=== PATIENT | male | born 2005 | race Caucasian/White ===

== ENCOUNTER 2024-04-14 19:05 | Emergency (ER) | payer BC, SELFPAY ==
--- NOTE | 2024-04-14 19:12 | ED.SKABFB ---
HPI - Skin/Abscess/Foreign Bdy General Chief complaint: General Medical Stated complaint: Allergic reaction Time Seen by Provider: 04/14/24 21:52 Source: patient Mode of arrival: ambulatory Limitations: no limitations History of Present Illness ED Provider: SAMUEL RODRIGUEZ narrative: 19 yo male not toxic 1 week ago dx with influenza and bronchitis - was prescribed tamiflu, zpak, prednisone and inhaler. He notes a very sore throat. He completed his therapies except still on prednisone. He has no known prior allergies. Tonight he had a chicken bake and developed a full body rash but it is not itchy. His face felt hot. The rash is diffuse and rough not hives. He notes he still has a sore throat despite treatments. He has swollen lymph nodes in the neck. MD complaint: rash Onset (ago): hour(s) (1) Tetanus up to date: no Location: generalized Severity: moderate Pain Consistency: constant Relieving factors: none Exacerbating factors: none Context: recent illness and recent antibiotic Associated symptoms: other (sore throat) Treatments prior to arrival: none Related Data Previous Rx's ?Medication ?Instructions ?Recorded albuterol sulfate 90 mcg/actuation 2 puff inhalation QID PRN 04/14/24 aerosol inhaler shortness of breath or wheezing #6.7 grams amoxicillin 875 mg-potassium 1 tab PO BID #19 tabs 04/14/24 clavulanate 125 mg tablet Allergies Allergy/AdvReac Type Severity Reaction Status Date / Time No Known Allergies Allergy Verified 04/14/24 19:15 Review of Systems Review of Systems: Constitutional : No Fever, No Chills ENT/Mouth : no oral swelling, No Hoarseness, pos Swallowing Difficulty, pos sore throat Eyes: No Eye Pain, No Swelling, No Redness Cardiovascular : No Chest Pain, No SOB Respiratory : No Cough, No Sputum, No Wheezing, No Smoke Exposure, No Dyspnea Gastrointestinal : No Nausea, No Vomiting, No Diarrhea, No abdominal Pain Genitourinary : No Dysuria, No Urinary Frequency, No Hematuria Musculoskeletal : No joint pain, No Myalgias, No Joint Swelling Skin : No Skin Lesions, positive rash Neuro : No Weakness, No Numbness, No Headache All other systems reviewed and are negative [facility] Past Medical History Attestation statement: The following information was validated with the patient. Source: old records reviewed Medical History (Updated 04/14/24 @ 23:18 by Constanza Rizvi DO) Bronchitis Social History Social History (Updated 04/14/24 @ 23:13 by Constanza Rizvi DO) Patient Tobacco Use Status: Never used Tobacco Smoked in Last 30 Days: No Use of substances other than those prescribed or required for medical reasons: No Advance Directives: No Advance Directives Information Provided: No Physical Exam Vital Signs: Vital Signs: Last Vital Signs Temp 98.5 F 04/14/24 19:13 Pulse 78 04/14/24 22:47 Resp 18 04/14/24 22:47 BP 129/71 04/14/24 22:40 Pulse Ox 99 04/14/24 22:40 O2 Del Method Room Air 04/14/24 22:40 BMI result Body Mass Index 25.9 Appearance: Alert. Oriented X3. No acute distress. Eyes: Pupils equal, round and reactive to light. ENT: Pharynx bilateral exudates on both swollen tonsils moderate swelling and erythema tonsils are not touching and uvula is midline Neck: Normal inspection. bilateral shotty ant cervical lymph nodes CVS: Normal heart rate and rhythm. Pulses normal. Respiratory: No respiratory distress. Breath sounds normal. Abdomen: Soft and nontender. Skin: Skin warm and dry. Normal skin color. diffuse non blanchable rough sandpaper like rash on trunk back and extremities face is slightly red as well Extremities: No lower extremity edema. Neuro: Oriented X 3. No motor deficit. No sensory deficit. CN2-12 intact Course Course Course Narrative: This is a Rapid Medical Examination (RME) performed by Louis Mendoza PA-C in triage. Full HPI, ROS, assessment and treatment plan per primary provider in the Main ED. 19 yo male here for eval of sore throat and cough x1 week. He was seen at urgent care approximately 1 week ago. Diagnosed with a URI, discharged with a Z-Misbah and prednisone. Reports worsening throat pain, primarily on the right. Reports developing a full-body rash tonight after eating a chicken bake and smoothie, which he was consumed in the past without issue. + posterior oropharynx erythematous with bilateral tonsillar hypertrophy and exudates. Uvula midline. Controlling secretions and speaking complete sentences Plan: labs, viral/strep swabs, ekg Medications Administered Discontinued Medications Generic Name Dose Route Start Last Admin Trade Name Freq PRN Reason Stop Dose Admin Acetaminophen 650 mg 02/05/25 22:17 04/14/24 22:37 Acetaminophen 325 Mg Tablet PO 04/14/24 22:18 650 mg ONCE ONE Administration Albuterol Sulfate 2.5 mg/ 5 mg 04/14/24 22:39 04/14/24 22:44 Albuterol Sulfate 2.5 mg INHALE 04/14/24 22:40 5 mg ONCE ONE Administration Amoxicillin/Clavulanate Potassium 875 mg 04/14/24 23:19 04/14/24 23:32 Amoxicillin/Potassium Clav 875 Mg Tablet PO 04/14/24 23:20 875 mg ONCE ONE Administration Famotidine 20 mg 04/14/24 22:17 04/14/24 22:37 Famotidine 20 Mg Tablet PO 04/14/24 22:18 20 mg ONCE ONE Administration Medical Decision Making Medical Decision Making [facility] Narrative: 19 yo male with recent treatment of flu and bronchitis who now presents with no real improvement in his throat and his rash seems more scarlatinoform. It doesn't seem allergic will dose with amoxicillin and tylenol/pepcid. [place] swab sent off Differential Diagnosis Differential Diagnoses: The differential diagnosis associated with the presentation includes allergy, scarlet fever Admission/Observation Consideration of admission/observation: Escalation of care including admission/observation considered Lab Data [facility] Lab Attestation statement: I reviewed the patient's lab results. 04/14/24 20:24 04/14/24 20:24 Labs: Lab Results 04/14/24 Range/Units 20:24 WBC 11.6 H (4.8-10.8) X10*3/uL RBC 5.49 (4.60-5.80) X10*6/uL Hgb 15.9 (14.0-18.0) g/dl Hct 47.6 (42.0-52.0) % MCV 86.7 (80.0-98.0) fL MCH 29.0 (27.0-33.0) pg MCHC 33.4 (31.0-36.0) g/dl RDW 12.8 (11.0-16.0) % Plt Count 208 (160-400) X10*3/uL MPV 10.5 (9.4-12.4) fL Immature Gran % (Auto) 0.4 (0.0-0.4) % Neut % (Auto) 79.8 H (45-73) % Lymph % (Auto) 12.0 L (20-40) % [place] % (Auto) 7.5 (2-11) % Eos % (Auto) 0.0 (0-4) % Baso % (Auto) 0.3 (0-2) % Lymph # (Auto) 1.4 (1.2-4.9) X10*3/uL [place] # (Auto) 0.9 (0.1-1.2) X10*3/uL Eos # (Auto) 0.0 (0.0-0.4) X10*3/uL Baso # (Auto) 0.0 (0.0-0.2) X10*3/uL Abs Immat Gran (auto) 0.05 H (0.00-0.03) X10*3/uL Absolute Neuts (auto) 9.2 H (2.0-8.3) x10*3/uL Absolute Nucleated RBC 0.000 (0.0-0.012) X10*3/uL Nucleated RBC % (auto) 0.0 (0.0-0.2) /100WBC Sodium 141 (135-145) mmol/L Potassium 4.0 (3.3-5.1) mmol/L Chloride 108 (96-108) mmol/L Carbon Dioxide 26 (22-29) mmol/L Anion Gap 11 L (12-20) BUN 18 H (9-16) mg/dL Creatinine 0.90 (0.5-1.4) mg/dL Estim Creat Clear Calc 142.5 Estimated GFR > 60 Random Glucose 123 H (60-115) mg/dL Calcium 8.5 (8.4-10.2) mg/dL Magnesium 2.1 (1.6-2.6) mg/dL Total Bilirubin 0.2 (0.0-1.0) mg/dL AST 28 (5-37) U/L ALT 37 (0-40) U/L Alkaline Phosphatase 60 (39-117) U/L Total Protein 7.4 (6.5-8.0) g/dL Albumin 4.0 (3.5-5.0) g/dL Monoscreen Negative (Negative) S. pyogenes GrpA MYLES Negative (Negative) Independent Interpretation I performed an independent interpretation of an: EKG Interpretation: Rate: 78 Rhythm: NSR [place]: normal Normal P waves. Normal VANDANA. Normal QRS complex. ST T wave : artifact but no GABRIEL qTC: 396 prior studies: no acute ischemai The study has been interpreted contemporaneously by me. . Independent Historian Clinical information obtained from an independent historian. History obtained from or confirmed by: Friend External Record Review External record reviewed: Outpatient record Prescription Management I considered prescription management with: Antibiotic Discharge Plan Discharge Clinical Impression: Scarlet fever Patient Disposition: Home, Self-Care Instructions: Scarlet Fever (ED) Additional Instructions: return for any worsening symptoms oral swelling, difficulty breathing or any other concerns can take zyrtec over the counter for any rash or allergy symptoms throw toothbrush away after 24 hours On amoxicillin-clavulanate, softer bowel movements are to be expected. Call your provider if you move your bowels more than 4 times a day, your bowel movements are almost all liquid, or you get a rash.? Prescriptions: New amoxicillin-pot clavulanate 875-125 mg tablet 1 tab PO BID Qty: 19 0RF albuterol sulfate 90 mcg/actuation HFA aerosol inhaler 2 puff inhalation QID PRN (Reason: shortness of breath or wheezing) Qty: 6.7 0RF Stand Alone Forms: Work/School Release Print Language: Belarusian
[2024-04-14 19:13] VITALS: BP 135/74; PULSE 95; RESP 18; TEMP 36.9; O2SAT 98; BMI 25.9
--- NOTE | 2024-04-14 19:16 | ECG_ITS ---
Test Reason : allergic reaction Blood Pressure : */* mmHG Vent. Rate : 78 BPM Atrial Rate : 78 BPM P-R Int : 128 ms QRS Dur : 92 ms QT Int : 348 ms P-R-T Axes : 59 19 27 degrees QTcB Int : 396 ms Normal sinus rhythm Normal ECG No previous ECGs available Referred By: Dahlia Mendoza Electronically Signed By: Chau Fuentes
[2024-04-14 20:32] LABS: MANUAL DIFF FLAG NO
[2024-04-14 20:34] LABS: Basophils Percent Auto 0.3 % (0-2); Hematocrit 47.6 % (42.0-52.0); Hemoglobin 15.9 g/dl (14.0-18.0); Imm Gran Abs Auto 0.05 X10*3/uL (0.00-0.03); Imm Gran Pct Auto 0.4 % (0.0-0.4); Lymphocytes Absolute Auto 1.4 X10*3/uL (1.2-4.9); Mean Corpuscular HGB Conc 33.4 g/dl (31.0-36.0); Mean Corpuscular Volume 86.7 fL (80.0-98.0); Mean Platelet Volume 10.5 fL (9.4-12.4); Monocytes Absolute Auto 0.9 X10*3/uL (0.1-1.2); Monocytes Percent Auto 7.5 % (2-11); Neutrophils Absolute Auto 9.2 x10*3/uL (2.0-8.3); Neutrophils Percent Auto 79.8 % (45-73); Platelet Count 208 X10*3/uL (160-400); Red Blood Count 5.49 X10*6/uL (4.60-5.80); Red Cell Distribution Width 12.8 % (11.0-16.0); White Blood Count 11.6 X10*3/uL (4.8-10.8)
[2024-04-14 20:45] LABS: IDNOW Serial# 58CA691E; Strep A Nucleic Acid Negative (Negative)
[2024-04-14 20:48] LABS: Alanine Aminotransferase 37 U/L (0-40); Alkaline Phosphatase 60 U/L (39-117); Anion Gap 11 (12-20); Aspartate Amino Transferase 28 U/L (5-37); Bilirubin Total 0.2 mg/dL (0.0-1.0); Blood Urea Nitrogen 18 mg/dL (9-16); Calcium 8.5 mg/dL (8.4-10.2); Carbon Dioxide 26 mmol/L (22-29); Chloride 108 mmol/L (96-108); Creatinine Clr Calc Pharmacy 142.5; Estimated Glomerular Filt Rate > 60; Glucose Random 123 mg/dL (60-115); Magnesium 2.1 mg/dL (1.6-2.6); Sodium 141 mmol/L (135-145); Total Protein 7.4 g/dL (6.5-8.0)
[2024-04-14 20:50] LABS: Monotest Negative (Negative)
--- OUTSIDE RECORDS SUMMARY | 2024-04-14 21:45 | XMS_ITS | Referral Summary ---
Author Organization [facility] Address [address] [place] [address] Care Team Providers Care Ice Cream Freezer Name Role Phone No, Referring Primary Care Provider Unavailabl e Allergies No known active allergies Medications No known medications Social History Tobacco Use Types Packs/Day Years Used Date Smoking Tobacco: Never Smokeless Tobacco: Never Tobacco Cessation:Counseling Given: Not Answered Alcohol Use Standard Drinks/Week Comments Never 0 (1 standard drink = 0.6 oz pur e alcohol) Sex and Gender Information Value Date Recorded Sex Assigned at Male 06/26/2023 10:53 AM EDT Legal Sex Male 5:30 PM EDT Gender Identity Male 06/26/2023 10:53 AM EDT Sexual Orientation Not on file Last Filed Vital Signs Vital Sign Reading Time Taken Comments Blood Pressure 110/80 06/26/2023 12:53 PM EDT Pulse 64 06/26/2023 11:01 AM EDT Temperature 36.4 ??C (97.6 ??F) 07/16/2023 8:19 AM ED T Respiratory Rate - - Oxygen Saturation 99% 06/26/2023 11:01 AM EDT Inhaled Oxygen Concentration - - Weight 84 kg (185 lb 3.2 oz) 08/13/2023 10:18 AM EDT Height 185.4 cm (6' 1 ) 07/16/2023 8:19 AM EDT Body Mass Index 24.43 07/16/2023 8:19 AM EDT Plan of Treatment Not on file Insurance BCBS OUT OF STATE PPO [place]IC [place] [id number] Care Teams Ice Cream Freezer Relationship Specialty Start Date End Date No, Referring PCP - General 01/26/23
--- OUTSIDE RECORDS SUMMARY | 2024-04-14 21:45 | XMS_ITS | Encounter Summary ---
Author Organization [facility] Address [address] [place] [address] Care Team Providers Care Mold Making Supervisor Name Role Phone No, Referring Primary Care Provider Unavailabl e Encounter Details Date Type Department Care Team (Late st Contact Info) Description 09/10/2023 Convertrot Message [facility] Revenue Cycle Management [address] [place] [id number] Mychart, Generic Provider [address] [place] [address] your billing request Social History Tobacco Use Types Packs/Day Years Used Date Smoking Tobacco: Never Smokeless Tobacco: Never Alcohol Use Standard Drinks/Week Comments Never 0 (1 standard drink = 0.6 oz pur e alcohol) Sex and Gender Information Value Date Recorded Sex Assigned at Male 06/26/2023 10:53 AM EDT Legal Sex Male 5:30 PM EDT Gender Identity Male 06/26/2023 10:53 AM EDT Sexual Orientation Not on file documented as of this encounter Plan of Treatment Not on file documented as of this encounter Visit Diagnoses Not on filedocumented in this encounter Care Teams Mold Making Supervisor Relationship Specialty Start Date End Date No, Referring PCP - General 01/26/23 documented as of this encounter
--- OUTSIDE RECORDS SUMMARY | 2024-04-14 21:45 | XMS_ITS | Clinical Summary ---
Author Organization [facility] Address [address] [place] [address] Care Team Providers Care Newspaper Delivery Counselor Name Role Phone No, Referring Primary Care Provider Unavailabl e Allergies No known active allergies Medications No known medications Family History Medical History Relation Name Comments No Known Problems Father No Known Problems Mother Relation Name Status Comments Father Mother Social History Tobacco Use Types Packs/Day Years [...] 07/16/2023 8:19 AM EDT Plan of Treatment Health Maintenance Due Date Last Done Comments HIV Screening 2003 Hepatitis C Screening 2003 1 Week WC 2003 1 Month WC 2003 2 Month WC 2003 4 Month WC 2003 6 Month WC 2003 9 Month [employer] 2003 12 Month [employer] 01/30/2004 15 Month [employer] 04/17/2004 18 Month [employer] 07/16/2004 24 Month [employer] 01/12/2005 30 Month [employer] 05/18/2005 3 to 21 Year [employer] 2006 Well Child Check 2006 Varicella Vaccines (2 of 2 - 2-dose childhood series) 2007 02/03/2004 HPV Vaccines (1 - Male 3-dos e series) 2018 COVID-19 Vaccine (1 - 2023-2 5 season) 2023 Influenza Vaccine (#1) 2023 5, 02/03/2004, 2003 Alcohol/Substance Use Screening 03/10/2024 Depression Screening and Follow-Up 03/10/2024 Social Drivers of Health Norma ual Screening 03/10/2024 DTaP,Tdap,and Td Vaccines (6 - Td or Tdap) 05/16/2025 05/17/2015, 07/26/2004, 2003, Additional history exists RSV Vaccine (60+ years old a nd patients) (1 - 1-dose 75+ series) 2078 Hepatitis B Vaccines Completed 2003, 2003, 2003 MMR Vaccines Completed 05/03/2004 Pneumococcal Vaccine: Pediat rashid (0-5 Years) and At-Risk Patients (6-64 Years) Completed 05/03/2004, 2003, 2003 Meningococcal Vaccine Completed 09/13/2021 Insurance BCBS OUT OF STATE PPO [place] [place] [id number] Care Teams Newspaper Delivery Counselor Relationship Specialty Start Date End Date No, Referring PCP - General 01/26/23
--- OUTSIDE RECORDS SUMMARY | 2024-04-14 21:45 | XMS_ITS | Clinical Summary ---
Author Organization [facility] Address [address] [place] [address] Care Team Providers Care Supervisor Production Managing Name Role Phone None, Per Patient Pcp Primary Care Provider Unav ailable Allergies No known active allergies Medications Medication Sig Dispensed Refills Start Date End Date Status clotrimazole (LOTRIMIN) 1 % creamIndications:Amanda a Apply topically 2 (two) times a day 60 g 06/06/2021 Active Active Problems No known active problems Social History Tobacco Use Types Packs/Day Years Used Date Smoking Tobacco: Never Smokeless Tobacco: Never Sex and Gender Information Value Date Recorded Sex Assigned at Not on file Gender Identity Not on file Sexual Orientation Not on file Last Filed Vital Signs Vital Sign Reading Time Taken Comments Blood Pressure 125/69 06/06/2021 10:25 AM CDT Pulse 83 06/06/2021 10:25 AM CDT Temperature 36.6 ??C (97.8 ??F) 06/06/2021 10:25 AM C DT Respiratory Rate 14 06/06/2021 10:25 AM CDT Oxygen Saturation 99% 06/06/2021 10:25 AM CDT Inhaled Oxygen Concentration - - Weight 79.4 kg (175 lb) 06/06/2021 10:25 AM CDT Height 182.9 cm (6') 06/06/2021 10:25 AM CDT Body Mass Index 23.73 06/06/2021 10:25 AM CDT Plan of Treatment Health Maintenance Due Date Last Done Comments MMR Vaccines (1 of 1 - Standard series) 01/30/2004 Meningococcal B Vaccine (1 o f 2 - Patient Seeks Protection) 2013 Varicella Vaccines (1 of 2 - 13+ 2-dose series) 01/30/2016 HIV Screening 2018 HPV Vaccines (1 - Male 3-dos e series) 2018 Adult Depression Screening 2021 Hepatitis C Screening 2021 DTaP/Tdap/Td Vaccines (1 - Tdap) 2022 Hepatitis B Vaccines (1 of 3 - 19+ 3-dose series) 2022 Influenza Vaccine (#1) 2023 5, 02/03/2004, 2003 COVID-19 Vaccine (1 - 2023-2 5 season) 2023 Zoster Vaccine (1 of 2) 2053 Respiratory Syncytial Virus (RSV) or 60+ Years (1 - 1-dose 75+ series) 2078 HIB Vaccines Aged Out No longer eligi ble based on patient's age to complete this topic Hepatitis A Vaccines Aged Out No long er eligible based on patient's age to complete this topic IPV Vaccines Aged Out No longer eligi ble based on patient's age to complete this topic Meningococcal Vaccine Aged Out No elizabeth ezio eligible based on patient's age to complete this topic Pneumococcal Vaccine: Pediatrics (0 to 5 Years) and At-Risk Patients (6 to 49 Years) Aged Out No longer eligible b ased on patient's age to complete this topic Rotavirus Vaccines Aged Out No longer eligible based on patient's age to complete this topic Care Teams Supervisor Production Managing Relationship Specialty Start Date End Date None, Per Patient Pcp PCP - General 05/04/19
[2024-04-14] MEDS: Famotidine 20 MG TABLET PO (22:37)
[2024-04-14] MEDS: Acetaminophen 325 MG TABLET 650 MG PO (22:37)
[2024-04-14 22:40] VITALS: BP 129/71; PULSE 81; RESP 16; O2SAT 99
[2024-04-14] MEDS: Albuterol Sulfate 2.5 MG, Albuterol Sulfate (0.083%) 2.5 MG 5 MG INHALE (22:44)
[2024-04-14 22:47] VITALS: PULSE 78; RESP 18; O2SAT 98
[2024-04-14] MEDS: Amoxicillin/Potassium Clav 875 MG TABLET PO (23:32)
[2024-04-14 23:47] VITALS: BP 102/74; PULSE 112; RESP 18; TEMP 37; O2SAT 96
== END 2024-04-14 23:36 | disposition home or self-care (01) ==
PROVIDERS: Physician Assistant Medical; Emergency Provider Emergency Medicine
DX: A38.9 Scarlet fever, uncomplicated (principal); R21 Rash and other nonspecific skin eruption; J02.9 Acute pharyngitis, unspecified
CPT/HCPCS: 36415; 80053; 83735; 85025; 86308; 87651; 93005; 94640; 99284; 99285

== ENCOUNTER → 2024-04-14 19:16 | Outpatient (BNV) | payer BC, SELFPAY | PROVIDERS: Emergency Provider Emergency Medicine; Visit Provider Internal Medicine Cardiovascular Disease | DX: T78.40XA Allergy, unspecified, initial encounter (principal) | CPT/HCPCS: 93010 ==